=== PATIENT | male | born 1960 | race Hispanic/Latino ===

== ENCOUNTER → 2020-04-01 | Day surgery (SDC) | payer OTHER ==
[~2020-04-01] MED LIST: HUMIRA40 MG/0.8 INJ; PRILOSEC10 M1 PO; PROPOFOL IV EMULSION 10 MG/ML 20 ML VIAL ONE
[2020-04-01 08:15] VITALS: BP 132/81
== END | disposition home or self-care (01) ==
LOC: OR 05:46
PROVIDERS: ATTEND Internal Medicine Gastroenterology
DX: Z12.11 Encounter for screening for malignant neoplasm of colon (principal); K64.8 Other hemorrhoids; I10 Essential (primary) hypertension; Z71.3 Dietary counseling and surveillance; E66.01 Morbid (severe) obesity due to excess calories; F17.200 Nicotine dependence, unspecified, uncomplicated; Z01.810 Encounter for preprocedural cardiovascular examination; Z01.812 Encounter for preprocedural laboratory examination; Z11.59 Encounter for screening for other viral diseases; Z68.42 Body mass index [BMI] 45.0-49.9, adult
CPT/HCPCS: 45378; 87635; 93005; J2704